=== PATIENT | female | born 1950 | race Native Hawaiian/Other Pacific Islander ===

== ENCOUNTER 2017-04-06 00:56 | Emergency (ER) | payer BC ==
[~2017-04-06] VITALS: Ht 152.4 cm; Wt 73.0 kg
[~2017-04-06 00:56] MED LIST: Acetaminophen PO; CALC950T2 PO; CARB1DRO3 OP; DIPH25CA83 PO; DORZ10DR11 LEFTEYE; LATA2.5D7 EACHEYE; LEVO75TA7 PO; PANT40TA2 PO; PRED20TA PO; PRED5DRO16 LEFTEYE; SITA100T PO
[2017-04-06] MEDS ORDERED: IBUPROFEN 800 MG TABLET (01:11)
[2017-04-06] MEDS ORDERED: METHOTREXATE 2.5 MG TABLET (01:11)
[2017-04-06] MEDS ORDERED: ATOR10TA PO (01:14)
[2017-04-06] MEDS ORDERED: METF10002 PO (01:14)
--- NOTE | 2017-04-06 01:15 | NUR ---
PATIENT BROUGHT IN BY DAUGHTER FOR C/O N/V AND DIARRHEA THAT STARTED 4HRS PRIOR TO ARRIVAL. ALSO C/O ABDOMINAL CRAMPS
[2017-04-06] MEDS ORDERED: IV NORMAL SALINE 1000 ML BAG IV ONE ×3 (01:30→03:00)
[2017-04-06] MEDS ORDERED: HYDROMORPHONE 1 MG/1 ML DISP.SYRIN IV ONE (01:30)
[2017-04-06] MEDS ORDERED: ONDANSETRON 4 MG/2 ML VIAL IV ONE (01:30)
[2017-04-06 01:45] LABS: EOSINOPHILS # (AUTO) 0.1 K/uL (0.0-0.7); EOSINOPHILS % (AUTO) 0.3 % (0.0-7.0); HEMATOCRIT 42.5 % (37-47); HEMOGLOBIN 14.6 G/DL (12.0-16.0); LYMPHOCYTES # (AUTO) 0.4 K/UL (0.8-4.8); LYMPHOCYTES % (AUTO) 2.1 % (20.5-51.5); MEAN CORPUSCULAR HGB CONC 34 g/dL (32.0-37.0); MEAN CORPUSCULAR VOLUME 87.5 FL (81.0-99.0); MONOCYTES # (AUTO) 0.1 K/UL (0.1-1.30); MONOCYTES % (AUTO) 0.8 % (0.0-11.0); NEUTROPHILS # (AUTO) 16.9 K/UL (1.8-8.9); NEUTROPHILS % (AUTO) 96.8 % (38.5-71.5); PLATELET COUNT (AUTO) 304 K/UL (150-450); RED BLOOD CELL COUNT(AUTO) 4.86 MIL/UL (4.2-5.4); WHITE BLOOD COUNT (AUTO) 17.5 K/UL (4.0-11.2)
[2017-04-06] MEDS ORDERED: ONDANSETRON 4 MG/2 ML VIAL ONE (01:46)
[2017-04-06] MEDS ORDERED: HYDROMORPHONE 1 MG/1 ML DISP.SYRIN ONE (01:46)
[2017-04-06 01:55] LABS: BILIRUBIN,DIRECT 0.2 mg/dL (0.0-0.2); BILIRUBIN,TOTAL 0.7 mg/dL (0.2-1.0); CREATININE 1.2 mg/dL (0.6-1.3); POTASSIUM 3.5 mmol/L (3.5-5.1); TOTAL PROTEIN, SERUM 8.1 g/dL (6.4-8.2)
[2017-04-06 03:12] LABS: *BILIRUBIN,URIN NEGATIVE (NEGATIVE); *BLOOD, URINE Trace-intact (NEGATIVE); *COLOR,URINE YELLOW (YELLOW); *KETONES,URINE NEGATIVE (NEGATIVE); *PROTEIN,URINE NEGATIVE (NEGATIVE); *UROBILINOGEN,URINE 0.2 E.U./dl (NORMAL); LEUKOCYTE ESTERASE ,URINE NEGATIVE (NEGATIVE); NITRITE, URINE NEGATIVE (NEGATIVE); PH,URINE 5.5 (5.0-8.0); UGLUCOSE NEGATIVE (NEGATIVE)
[2017-04-06 03:20] LABS: *CLARITY,URINE HAZY (CLEAR)
[2017-04-06 03:21] LABS: BACTERIA,URINE NONE SEEN /HPF (NONE SEEN); MUCUS,URINE FEW /LPF (0-FEW); RBC,URINE 0-3 /HPF (0-3); SQUAMOUS EPITHELIAL CELL,UR FEW /HPF (NONE SEEN); WBC,URINE 0-3 /HPF (0-3)
--- NOTE | 2017-04-06 03:49 | NUR ---
IV removed. Catheter intact and site benign. Pressure and 4x4 gauze applied to site. No bleeding noted.
--- NOTE | 2017-04-06 04:11 | NUR ---
Patient discharged to home in stable conditon WITH DAUGHTER TAKING PATIENT HOME. Written and verbal after care instructions given. Patient verbalizes understanding of instructions.
[2017-04-06 04:12] VITALS: BP 106/64
== END 2017-04-06 04:13 | disposition home or self-care (01) ==
LOC: ER 01:00
DX: K52.9 Noninfective gastroenteritis and colitis, unspecified (principal); I10 Essential (primary) hypertension; E78.00 Pure hypercholesterolemia, unspecified; E11.9 Type 2 diabetes mellitus without complications; E03.9 Hypothyroidism, unspecified; K21.9 Gastro-esophageal reflux disease without esophagitis; Z90.49 Acquired absence of other specified parts of digestive tract; Z88.1 Allergy status to other antibiotic agents; Z88.2 Allergy status to sulfonamides
CPT/HCPCS: 36415; 70030-TC; 71010; 83605; 83690; 85025; 85730; 87040; 87086; 93005; A4663; J1170; J2405; J7030